=== PATIENT | male | born 1955 | race Caucasian/White ===

== ENCOUNTER 2021-06-28 17:35 | Emergency (ER) | payer OTHER ==
[~2021-06-28] VITALS: Ht 172.7 cm; Wt 113.4 kg
[~2021-06-28 17:35] MED LIST: CRUTCH2 XX; HYDACE5 PO; Naprosyn500 MG PO; PROM25 PO; TRAM50 PO; VICODIN 5-3001 EACH PO
[2021-06-28 18:05] LABS: BASOPHILS ABSOLUTE AUTO 0.01 K/mm3 (0.00-0.23); BASOPHILS PERCENT AUTO 0 % (0-2); EOSINOPHILS ABSOLUTE AUTO 0.17 K/mm3 (0.00-0.68); EOSINOPHILS PERCENT AUTO 2 % (0-6); Hematocrit 45.3 % (37.0-53.0); Hemoglobin 15.5 g/dL (13.5-17.5); IMMATURE GRAN ABSOLUTE AUTO 0.02 K/mm3 (0.00-0.10); IMMATURE GRAN PERCENT AUTO 0 % (0-1); LYMPHOCYTES ABSOLUTE AUTO 2.04 K/mm3 (0.84-5.20); LYMPHOCYTES PERCENT AUTO 29 % (21-46); MONOCYTES ABSOLUTE AUTO 0.36 K/mm3 (0.16-1.47); MONOCYTES PERCENT AUTO 5 % (4-13); Mean Corpuscular HGB 32.1 pg (26.0-34.0); Mean Corpuscular HGB Conc 34.2 g/dL (31.5-36.5); Mean Corpuscular Volume 94 fL (80-100); Mean Platelet Volume 11.4 fL (9.1-12.4); NEUTROPHILS ABSOLUTE AUTO 4.41 K/mm3 (1.96-9.15); NEUTROPHILS PERCENT AUTO 63 % (41-73); Platelet Count 167 K/mm3 (150-400); RDW Coefficient Variation 12.6 % (11.7-14.2); RDW Standard Deviation 43.7 fL (35.1-46.3); Red Blood Cell Count 4.83 M/mm3 (4.30-5.90); White Blood Cell Count 7.01 K/mm3 (4.00-11.30)
[2021-06-28 18:30] LABS: Alanine Aminotransfer (ALT/SGP 38 U/L (12-78); Albumin, Blood 3.5 g/dL (3.4-5.0); Albumin/Globulin Ratio 0.9 (0.8-1.8); Alk Phos 50 U/L (50-136); Anion Gap 4 mmol/L (6-16); Aspartate Aminotrans (AST/SGOT 17 U/L (12-37); Bilirubin, Total 0.4 mg/dL (0.1-1.0); Blood Urea Nitrogen 15 mg/dL (8-24); Bun/Creatinine Ratio 14.7 (12.0-20.0); CO2, Blood 29 mmol/L (21-32); Calcium, Blood 10.1 mg/dL (8.5-10.1); Chloride, Blood 107 mmol/L (98-108); Creatinine, Blood 1.02 mg/dL (0.60-1.20); Globulin, Blood 3.8 g/dL (2.2-4.0); Glomerular Filtration Rate >60 (60-); Glucose, Blood 234 mg/dL (70-99); Potassium, Blood 4.1 mmol/L (3.5-5.5); Sodium, Blood 140 mmol/L (136-145); Total Protein, Blood 7.3 g/dL (6.4-8.2)
[2021-06-28] MEDS ORDERED: ELIQUIS5 M2 PO (18:51)
== END 2021-06-28 19:17 | disposition home or self-care (01) ==
LOC: ER 17:35
PROVIDERS: Physician Assistant
DX: I82.401 Acute embolism and thrombosis of unspecified deep veins of right lower extremity (principal)
CPT/HCPCS: 36415; 80053; 85025; 99283; A9270

== ENCOUNTER 2023-01-25 18:01 | Inpatient (IN) | payer OTHER ==
[~2023-01-25] VITALS: Ht 182.9 cm; Wt 98.2 kg
[~2023-01-25 18:01] MED LIST changes: +ELIQUIS5 M2 PO
[2023-01-25 18:38] LABS: BASOPHILS ABSOLUTE AUTO 0.01 K/mm3 (0.00-0.23); BASOPHILS PERCENT AUTO 0 % (0-2); EOSINOPHILS PERCENT AUTO 0 % (0-6); Hematocrit 49.3 % (37.0-53.0); Hemoglobin 17.2 g/dL (13.5-17.5); IMMATURE GRAN ABSOLUTE AUTO 0.05 K/mm3 (0.00-0.10); IMMATURE GRAN PERCENT AUTO 0 % (0-1); LYMPHOCYTES ABSOLUTE AUTO 1.48 K/mm3 (0.84-5.20); LYMPHOCYTES PERCENT AUTO 11 % (21-46); MONOCYTES ABSOLUTE AUTO 1.09 K/mm3 (0.16-1.47); MONOCYTES PERCENT AUTO 8 % (4-13); Mean Corpuscular HGB 33.3 pg (26.0-34.0); Mean Corpuscular HGB Conc 34.9 g/dL (31.5-36.5); Mean Corpuscular Volume 96 fL (80-100); Mean Platelet Volume 11.3 fL (9.1-12.4); NEUTROPHILS ABSOLUTE AUTO 10.52 K/mm3 (1.96-9.15); NEUTROPHILS PERCENT AUTO 80 % (41-73); Platelet Count 180 K/mm3 (150-400); RDW Coefficient Variation 13.4 % (11.7-14.2); RDW Standard Deviation 47.8 fL (35.1-46.3); Red Blood Cell Count 5.16 M/mm3 (4.30-5.90); White Blood Cell Count 13.15 K/mm3 (4.00-11.30)
[2023-01-25 18:52] LABS: Albumin, Blood 3.6 g/dL (3.4-5.0); Albumin/Globulin Ratio 0.9 (0.8-1.8); Bilirubin, Total 0.8 mg/dL (0.1-1.0); Bun/Creatinine Ratio 13.5 (12.0-20.0); Calcium, Blood 8.9 mg/dL (8.5-10.1); Globulin, Blood 4.1 g/dL (2.2-4.0); Potassium, Blood 4.5 mmol/L (3.5-5.5); Total Protein, Blood 7.7 g/dL (6.4-8.2)
[2023-01-25 20:19] LABS: Source, Urine Straight Cath
[2023-01-25 20:23] LABS: Bilirubin, Urine Neg (Neg); Blood, Urine 4+ (Neg); Glucose Qualitative, Urine Neg (Neg); Ketones, Urine Neg (Neg); Leukocyte Esterase, Urine Neg (Neg); Nitrite, Urine Neg (Neg); Protein, Urine 1+ (Neg); Specific Gravity, Urine 1.005 (1.003-1.022); Urobilinogen, Urine NORM (Normal)
[2023-01-25 20:40] LABS: Appearance, Urine Clear (Clear); Color, Urine Yellow (P-Yellow)
[2023-01-25 20:41] LABS: Bacteria Rare /hpf; Red Blood Cells, Urine 0-2 /hpf (0-2); Squamous Epithelial Cells Not Seen /hpf (Few); White Blood Cells, Urine 0-2 /hpf (0-5)
[2023-01-25 23:44] VITALS: BP 216/125
[2023-01-26] VITALS (10 sets, daily range): BP systolic 141–212; BP diastolic 88–119
[2023-01-26] MEDS ORDERED: XARELTO20 MG PO (00:57)
--- NOTE | 2023-01-26 01:35 | NUR ---
PT HAS HAD HTN SINCE ARRIVING TO UNIT, PRN GIVEN PER ORDER FOR BP 216/125, RETAKEN WITH 212/119, CALL TO DR LO WITH NEW ORDER FOR LABATOLOL PLACED, GIVEN, BP 171/102, INFORMED DR LO AND NO FURTHER INSTRUCTIONS OR INTERVENTIONS AT THIS TIME.
[2023-01-26 04:52] LABS: BASOPHILS ABSOLUTE AUTO 0.03 K/mm3 (0.00-0.23); BASOPHILS PERCENT AUTO 0 % (0-2); EOSINOPHILS PERCENT AUTO 0 % (0-6); Hemoglobin 16.7 g/dL (13.5-17.5); IMMATURE GRAN ABSOLUTE AUTO 0.07 K/mm3 (0.00-0.10); IMMATURE GRAN PERCENT AUTO 1 % (0-1); LYMPHOCYTES ABSOLUTE AUTO 0.59 K/mm3 (0.84-5.20); LYMPHOCYTES PERCENT AUTO 4 % (21-46); MONOCYTES ABSOLUTE AUTO 1.23 K/mm3 (0.16-1.47); MONOCYTES PERCENT AUTO 8 % (4-13); Mean Corpuscular HGB 32.5 pg (26.0-34.0); Mean Corpuscular HGB Conc 34.1 g/dL (31.5-36.5); Mean Corpuscular Volume 95 fL (80-100); Mean Platelet Volume 11.4 fL (9.1-12.4); NEUTROPHILS ABSOLUTE AUTO 13.21 K/mm3 (1.96-9.15); NEUTROPHILS PERCENT AUTO 87 % (41-73); Platelet Count 149 K/mm3 (150-400); RDW Coefficient Variation 13.4 % (11.7-14.2); RDW Standard Deviation 47.9 fL (35.1-46.3); Red Blood Cell Count 5.14 M/mm3 (4.30-5.90); White Blood Cell Count 15.13 K/mm3 (4.00-11.30)
[2023-01-26 05:07] LABS: Albumin, Blood 3.1 g/dL (3.4-5.0); Albumin/Globulin Ratio 0.9 (0.8-1.8); Bilirubin, Total 1.2 mg/dL (0.1-1.0); Bun/Creatinine Ratio 19.6 (12.0-20.0); Calcium, Blood 8.4 mg/dL (8.5-10.1); Creatinine, Blood 1.38 mg/dL (0.60-1.20); Globulin, Blood 3.6 g/dL (2.2-4.0); Potassium, Blood 4.1 mmol/L (3.5-5.5); Total Protein, Blood 6.7 g/dL (6.4-8.2)
--- NOTE | 2023-01-26 06:26 | NUR ---
BP 165/106 HR 111 AT 0445, PRN HYDRALOZINE GIVEN, BP 165/98 HR 119, DR CALLED, LOPRESSOR 5MG IV ORDERED AND GIVEN. PT BREATHING IS BECOMING MORE TACHYPNIC. PT HAS ATTEMPTED TO SAY SOME WORDS.
--- NOTE | 2023-01-26 07:58 | NUR ---
MD CALL ON ASSESSMENT PT NON VERBAL, ABLE TO NOD TO SOME QUESTIONS, BUT SLOW TO RESPOND. ABLE TO VERY WEAKLY SQUEEZE MY HANDS, EQUAL, BUT SLOW RESPONSE. ABLE TO WIGGLE TOES AND PUSH TOES INTO MY HANDS, EQUAL BUT VERY WEAK. RESP RATE 28-30. FACE SOMEWHAT FLUSHED. SKIN WARM TO TOUCH. NO UOP SINCE LAST STRAIGHT CATH, BLADDER SCAN GREATER THAN 450. DR GRESHAM CALLED TO REPORT FINDINGS. TELEPHONE ORDER TO INCREASE IVF TO NS AT 150CC/HR AND PLACE [facility].
[2023-01-26 08:28] LABS: Base Excess Venous -0.2 mmol/L; Bicarbonate Venous 25.1 mmol/L (24.0-30.0); PCO2 Venous 32.4 mmHg (38-42); pH Blood Venous 7.47 (7.34-7.37)
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
[2023-01-26 15:56] LABS: U Amphetamine Screen Not Detected; U Barbituate Screen Not Detected; U Benzodiazapine Screen Not Detected; U Buprenorphine Screen Not Detected; U Cannabinoids Screen Not Detected; U Cocaine Screen Not Detected; U Methadone Screen Not Detected; U Methamphetamine Screen Not Detected; U Opiates Screen Not Detected; U Oxycodone Screen Not Detected; U Phencyclidine Screen Not Detected; U Propoxyphene Screen Not Detected
--- NOTE | 2023-01-26 15:59 | NUR ---
MD CALL DISCUSSED WITH DR GRESHAM UPDATE OF CARE STATUS; CIWA SCORE 9 - DISCORIENTION/UNABLE TO ANSWER QUESTIONS CAUSED 4 OF THE CIWA SCORE. SAID THAT MEDICATING FOR CIWA AT THIS POINT COULD BLANKET MENTAL STATUS CHANGES, WHICH I AGREE WITH. WILL CONTINUE TO REVIEW WITH FURTHER CIWAS. PT'S EYES LOOKING FREQUENTLY TO THE RIGHT. RESPIRATION RATE CONTINUES TO BE 28-32RESPS PER MINUTE. NO NEW ORDERS AT THIS TIME.
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
[2023-01-27 03:31] VITALS: BP 153/92
[2023-01-27 04:44] LABS: Hematocrit 43.9 % (37.0-53.0); Hemoglobin 14.8 g/dL (13.5-17.5); Mean Corpuscular HGB Conc 33.7 g/dL (31.5-36.5); Mean Corpuscular Volume 98 fL (80-100); Platelet Count 131 K/mm3 (150-400); RDW Coefficient Variation 14.1 % (11.7-14.2); Red Blood Cell Count 4.49 M/mm3 (4.30-5.90); White Blood Cell Count 11.26 K/mm3 (4.00-11.30)
[2023-01-27 05:27] LABS: Albumin, Blood 2.3 g/dL (3.4-5.0); Albumin/Globulin Ratio 0.6 (0.8-1.8); Bilirubin, Total 1.2 mg/dL (0.1-1.0); Bun/Creatinine Ratio 26.7 (12.0-20.0); Calcium, Blood 7.8 mg/dL (8.5-10.1); Creatinine, Blood 0.94 mg/dL (0.60-1.20); Globulin, Blood 3.9 g/dL (2.2-4.0); Potassium, Blood 3.9 mmol/L (3.5-5.5); Total Protein, Blood 6.2 g/dL (6.4-8.2)
--- NOTE | 2023-01-27 06:05 | NUR ---
PT MORE VERBAL THIS SHIFT, STILL UNSURE OF MENTATION HE DOES NOT ALWAYS ANSWER. PRN X1 FOR BP. Q2HR TURN. BED ALARM ON.
[2023-01-27 07:45] VITALS: BP 146/87
[2023-01-27 15:08] VITALS: BP 153/88
--- NOTE | 2023-01-27 16:25 | NUR ---
SHIFT SUMMARY PATIENT IS ALERT AND ORIENTED TO SELF AND FAMILY. PATIENT HAS HAD NO ACUTE EVENTS THIS SHIFT. VITAL SIGNS REVIEWED. PATIENT HAS BEEN MORE ALERT THE SHIFT WENT ON. PATIENT HAS HAD SPEECH EVAL DONE TODAY AND CAN TOLERATE FOOD AND THIN LIQUIDS. PATIENT HAS HAD NO COMPLAINTS OF PAIN, NAUSEA, SOB OR VOMITTING. BED IN LOCKED AND LOWEST POSITION. CALL LIGHT IN PLACE.
[2023-01-27 19:59] VITALS: BP 155/92
[2023-01-28] VITALS (7 sets, daily range): BP systolic 139–190; BP diastolic 82–109
[2023-01-28 05:14] LABS: BASOPHILS ABSOLUTE AUTO 0.01 K/mm3 (0.00-0.23); BASOPHILS PERCENT AUTO 0 % (0-2); EOSINOPHILS ABSOLUTE AUTO 0.01 K/mm3 (0.00-0.68); EOSINOPHILS PERCENT AUTO 0 % (0-6); Hematocrit 40.5 % (37.0-53.0); Hemoglobin 13.3 g/dL (13.5-17.5); IMMATURE GRAN ABSOLUTE AUTO 0.04 K/mm3 (0.00-0.10); IMMATURE GRAN PERCENT AUTO 0 % (0-1); LYMPHOCYTES ABSOLUTE AUTO 1.17 K/mm3 (0.84-5.20); LYMPHOCYTES PERCENT AUTO 12 % (21-46); MONOCYTES ABSOLUTE AUTO 0.78 K/mm3 (0.16-1.47); MONOCYTES PERCENT AUTO 8 % (4-13); Mean Corpuscular HGB Conc 32.8 g/dL (31.5-36.5); Mean Corpuscular Volume 101 fL (80-100); Mean Platelet Volume 11.7 fL (9.1-12.4); NEUTROPHILS ABSOLUTE AUTO 7.93 K/mm3 (1.96-9.15); NEUTROPHILS PERCENT AUTO 80 % (41-73); Platelet Count 117 K/mm3 (150-400); RDW Coefficient Variation 13.9 % (11.7-14.2); RDW Standard Deviation 51.6 fL (35.1-46.3); Red Blood Cell Count 4.03 M/mm3 (4.30-5.90); White Blood Cell Count 9.94 K/mm3 (4.00-11.30)
[2023-01-28 06:03] LABS: Albumin/Globulin Ratio 0.5 (0.8-1.8); Bilirubin, Total 0.8 mg/dL (0.1-1.0); Bun/Creatinine Ratio 25.1 (12.0-20.0); Calcium, Blood 7.9 mg/dL (8.5-10.1); Creatinine, Blood 0.88 mg/dL (0.60-1.20); Potassium, Blood 3.9 mmol/L (3.5-5.5)
--- NOTE | 2023-01-28 06:40 | NUR ---
SHIFT SUMMARY A/O TO SELF ONLY. BEDREST AT THIS TIME. INCONT, ATTENDS IN PLACE. NS RUNNING AT 150. TELE SR 70-80S. VSS, NO ACUTE CHANGES AT THIS TIME. BED IN LOWEST POSITION WITH CALL LIGHT IN REACH. WILL CONTINUE TO MONITOR AND REPORT TO ONCOMING RN.
--- NOTE | 2023-01-28 12:17 | NUR ---
INCREASED AGITATION/CIWA AGITATION INCREASING T/O SHIFT. PT NOT STAYING IN BED, PULLING OUT IVS AND TELE OFF. CIWA OF 12. DR. HUSSEIN NOTIFIED FOR CIWA PROTOCOL ORDERS. PT MEDICATED WITH ATIVAN AFTERWARDS. PT NOW SLEEPING.
--- NOTE | 2023-01-28 14:09 | NUR ---
TRANSFER TO 350 PT TRANSFERED TO ROOM 350. REPORT GIVEN TO HARSHA TALAVERA. PT , CHIN NOTIFED AND IN ROOM WITH PT NOW.
--- NOTE | 2023-01-28 17:56 | NUR ---
TRANSFER PCU 10 REPORT CALLED TO AUBREY/MASON RN'S. PT AWAKE. MUMBLES OCCASIONALLY. BP ELEVATED. HYDRALAZINE GIVEN. PT NOTIFIED OF TRANSFER TO HIGHER CARE. PT TMOVED IN HIS BED. CONTINUEPOC.
--- NOTE | 2023-01-28 18:38 | NUR ---
TRANSFER/SHIFT SUMMARY: PATIENT ARRIVAL TO PCU AT 1730ISH. OPENING EYES AND ANSWERING SIMPLE YES AND NO QUESTIONS. PERRLA. LETHARGIC/DROWSY UPON ARRIVAL. DENIES N/T. FOLLOWING SIMPLE COMMANDS, SLOW TO RESPOND. BILATERAL EQUIPMENT RECORDS SUPERVISOR STRENGTH AND EQUAL MOVEMENTS. ON ROOM AIR SATING ABOVE 95%. LUNGS SOUNDS CLEAR AND DIM. NO COUGH NOTED. RR: 24-28. OCCASIONAL EXPIRATORY WHEEZE. TELE SHOWING SR WITH HR 80-90'S. SBP TRENDING DOWN IN 160'S. DENIES CHEST PAIN/PRESSURE. NO EDEMA NOTED. THIAMINE INFUSING PER EMAR. 2ND IV PLACED. DINNER TRAY HELD DUE TO PATIENT BEING SO LETHARGIC. ORAL CARE COMPLETED. RESTING CALMLY IN BED. BED ALARM IN PLACE. PATIENT NOT TRYING TO GET OUT OF BED AT THIS TIME. UPON PALPATION OF ABDOMIN PATIENT STATES HE HAS MILD TENDERNESS IN HIS RLQ. CIWA SCORE 5 UPON ARRIVAL. PATIENT VERBALIZED HOW TO CALL BY PRESSING RED LIGHT SENIOR CARE SPECIALIST LIGHT. LISTENING TO MUSIC AND TAPPING FEET IN BED. WILL CONTINUE TO MONITOR AND REPORT OFF TO NOC SHIFT.
--- NOTE | 2023-01-28 19:00 | NUR ---
ASSUMED CARE ASSUMED CARE OF PATIENT. AWAKE AND ALERT AT THIS TIME. ORIENTED TO SELF ONLY. SLOW VERBAL RESPONSE. SPEECH IS MUMBLED. MOVES ALL EXTREMITIES AND REPOSITIONS SELF IN BED SLIGHLTY. MONITOR SHOWS NSR WITH PACs/PVCs. BED ALARM IS ON. SEE SHIFT ASSESSMENT AND CIWA ASSESSMENT FOR FULL ASSESSMENT.
[2023-01-29 00:15] VITALS: BP 158/89
[2023-01-29 01:07] LABS: HBSAG SCREEN Negative (Negative); HCV AB Non Reactive (Non Reactive); HEP A AB, IGM Negative (Negative); HEP B CORE AB, IGM Negative (Negative)
[2023-01-29 03:58] VITALS: BP 142/80
--- NOTE | 2023-01-29 05:55 | NUR ---
SHIFT SUMMARY NO ACUTE CHANGES DURING NOC. CONTINUES TO BE ORIENTED TO SELF ONLY AND CONTINUES WITH SLOW VERBAL RESPONSE AND MUMBLED SPEECH. CIWA SCORES 8-13 DURING SHIFT. MEDICATED WITH LIBRIUM 25MG PO X 1 DOSE AND ATIVAN 2MG IV X 1 DOSE. PT OCCASIONALLY ATTEMPTS TO CLIMB OUT OF BED. BED ALARM IS ON. VSS. SHORT PERIODS OF APNEA NOTED WHEN ASLEEP WITH SATS DROPPING TO LOW 80s, BUT INCREASING BACK TO MID-90S QUICKLY. INCONTINENT OF URINE- ATTENDS IN PLACE. SWALLOWS LIQUIDS WITHOUT DIFFICULTY. WILL REPORT TO ONCOMING RN WHEN AVAILABLE.
--- NOTE | 2023-01-29 06:16 | NUR ---
SHIFT SUMMARY NO ACUTE CHANGES DURING NOC. PT SLEPT INTERMITTENTLY. ORIENTED AND COOPERATIVE WITH CARE, ALTHOUGH HE IS OFTEN IRRITABLE. HEPARIN INFUSING PER PHARMACY AT 18UNITS/KG/HR (28.8MLS/HR) WITH DOSING WEIGHT OF 80KG. VSS. REMAINS ON 4LNC. CONTINUES WITH MILD DYSPNEA/SOB WITH EXERTION. RESPIRATIONS EVEN AND UNLABORED AT REST. REPOSITIONS SELF IN BED. MEDICATED WITH TYLENOL 650MG FOR C/O LEFT HIP/ABD/FLANK AND BACK PAIN. PT SLEPT AFTER MEDS GIVEN, BUT WHEN AWAKE THIS AM HE STATES THAT THE TYLENOL DID NOT HELP. DR. BOOTH NOTIFIED OF PT'S CONTINUED C/O PAIN- NEW ORDER RECEIVED TO INCREASE TYLENOL DOSE AT THIS TIME. TOLERATED DIET EARLIER, BUT HAS BEEN NPO SINCE MIDNIGHT PER ORDER. VOIDING SMALL AMOUNTS OF CRISTINA URINE. WILL REPORT TO ONCOMING RN WHEN AVAILABLE.
[2023-01-29 08:07] VITALS: BP 166/94
[2023-01-29 12:00] VITALS: BP 158/88
--- NOTE | 2023-01-29 17:05 | NUR ---
ASSUMED CARE OF PT AT 0700. NO ACUTE CHANGES T/O THE SHIFT. PT MEDICATED TWICE FOR CIWA SCORES DOCUMENTED. VSS. IN THE AM PT BECAME AGGITATED AND PULLED OFF TELE AND PULLED OUT IVs. IV TO LAC PLACED AND CONCEALED. PT LATER CHANGED TO MEDICAL STATUS W/O TELE. PT'S AT BEDSIDE THIS AFTERNOON. STATES PT'S MENTATION HAS IMPROVED SINCE ADMISSION, BUT HE IS NOT BACK TO BASELINE. PHYSICAL THERAPY WORKED WITH PT, UP TO BSC WITH 1 PERSON ASSIST, BUT NOT FOLLOWING COMMANDS WELL. 2 PERSON TRANSFER FOR SAFETY. PT IS UNABLE TO USE CALL LIGHT FOR NEEDS, INCONTENENT OF URINE, ATTENDS IN PLACE. BED ALARM ON FOR SAFETY. WILL CONTINUE TO MONITOR AND GIVE REPORT TO 3RD FLOOR RN, PT WILL BE TRANSFERRED TO 343.
--- NOTE | 2023-01-29 18:22 | NUR ---
1744 to room via bed, pt slow to answer questions. oriented to person and knows that he is in hospital pt denies any pain . bed alarm in place
[2023-01-29 20:23] VITALS: BP 177/106
[2023-01-30 01:59] VITALS: BP 176/94
--- NOTE | 2023-01-30 05:02 | NUR ---
SHIFT SUMMARY 67 YR M ADMITTED FOR HEPATIC ENCEPHALOPATHY. FULL CODE. PT HAS REMAINED CONFUSED THIS SHIFT. HE DOES NOT RESPOND TO QUESTIONS AND IS UNABLE TO USE CALL LIGHT. HE TRIED TO GET UP ONCE WAS REDIRECTABLE. HE PULLED OUT HIS IV AND A NEW ONE WAS PLACED IN THE LEFT FOREARM, AND WRAPPED WELL WITH COBAN. HE HAS SLEPT OFF AND ON THROUGHOUT THIS SHIFT.
[2023-01-30 08:35] VITALS: BP 163/100
[2023-01-30 09:46] LABS: Albumin, Blood 2.1 g/dL (3.4-5.0); Albumin/Globulin Ratio 0.5 (0.8-1.8); Bilirubin, Total 1.2 mg/dL (0.1-1.0); Bun/Creatinine Ratio 26.8 (12.0-20.0); Calcium, Blood 8.5 mg/dL (8.5-10.1); Creatinine, Blood 0.71 mg/dL (0.60-1.20); Globulin, Blood 4.5 g/dL (2.2-4.0); Potassium, Blood 3.7 mmol/L (3.5-5.5); Total Protein, Blood 6.6 g/dL (6.4-8.2)
[2023-01-30 14:05] VITALS: BP 179/85
[2023-01-30 16:05] VITALS: BP 169/95
--- NOTE | 2023-01-30 18:01 | NUR ---
SHIFT SUMMARY: A&O TO SELF ONLY, RECOGNIZED . UNCCOPERATIVE WITH CARE, UNABLE/UNWILLING TO FOLLOW DIRECTIONS. ATE BREAKFAST, NO LUNCH. INCONTINENT OF B&B, ATTENDS IN PLACE. HYPERTENSIVE THIS AFTERNOON; HYDRALAZINE GIVEN AND WAS STARTED ON COZAAR. ATIVAN IV GIVEN X 1 FOR AGITATION, AND TO PREVENT SEIZURE. THIS AFTERNOON PT BECAME AGITATED, TRYING TO GET OOB WITHOUT ASSISTANCE, AND WOULD NOT FOLLOW STAFF INSTRUCTIONS. TRANSFERRED PT TO ROOM 346 IN SPECIAL CARE UNIT AT 1727 FOR CLOSER OBSERVATION AND INCREASED PT SAFETY. FTF REPORT GIVEN TO Yvonne GUTIERREZ RN.
[2023-01-30 21:51] VITALS: BP 162/99
[2023-01-31] VITALS (17 sets, daily range): BP systolic 101–166; BP diastolic 65–104
[2023-01-31 06:03] LABS: BASOPHILS ABSOLUTE AUTO 0.03 K/mm3 (0.00-0.23); BASOPHILS PERCENT AUTO 0 % (0-2); EOSINOPHILS ABSOLUTE AUTO 0.13 K/mm3 (0.00-0.68); EOSINOPHILS PERCENT AUTO 1 % (0-6); Hematocrit 40.2 % (37.0-53.0); Hemoglobin 13.8 g/dL (13.5-17.5); IMMATURE GRAN ABSOLUTE AUTO 0.16 K/mm3 (0.00-0.10); IMMATURE GRAN PERCENT AUTO 2 % (0-1); LYMPHOCYTES ABSOLUTE AUTO 1.24 K/mm3 (0.84-5.20); LYMPHOCYTES PERCENT AUTO 12 % (21-46); MONOCYTES ABSOLUTE AUTO 0.96 K/mm3 (0.16-1.47); MONOCYTES PERCENT AUTO 9 % (4-13); Mean Corpuscular HGB 32.9 pg (26.0-34.0); Mean Corpuscular HGB Conc 34.3 g/dL (31.5-36.5); Mean Corpuscular Volume 96 fL (80-100); Mean Platelet Volume 10.8 fL (9.1-12.4); NEUTROPHILS ABSOLUTE AUTO 8.24 K/mm3 (1.96-9.15); NEUTROPHILS PERCENT AUTO 77 % (41-73); Platelet Count 165 K/mm3 (150-400); RDW Coefficient Variation 13.2 % (11.7-14.2); RDW Standard Deviation 46.7 fL (35.1-46.3); Red Blood Cell Count 4.19 M/mm3 (4.30-5.90); White Blood Cell Count 10.76 K/mm3 (4.00-11.30)
[2023-01-31 06:31] LABS: Albumin, Blood 2.2 g/dL (3.4-5.0); Albumin/Globulin Ratio 0.5 (0.8-1.8); Bilirubin, Total 1.1 mg/dL (0.1-1.0); Bun/Creatinine Ratio 19.9 (12.0-20.0); Calcium, Blood 8.5 mg/dL (8.5-10.1); Creatinine, Blood 0.8 mg/dL (0.60-1.20); Globulin, Blood 4.1 g/dL (2.2-4.0); Potassium, Blood 3.5 mmol/L (3.5-5.5); Total Protein, Blood 6.3 g/dL (6.4-8.2)
--- NOTE | 2023-01-31 12:50 | NUR ---
PATIENT HAD AT BEDSIDE TODAY AT 1000 THIS MORNING WHICH PATIENT AT THAT TIME WAS ANSWERING QUESTIONS MORE APPROPRIATELY AND WAS MORE AWAKE AT THIS TIME. AFTER LEFT TO GO HOME, THE PATIENT FELL ASLEEP IN BED WITH CALL LIGHT IN REACH WELL BED ALARM ON. PATIENT WOKE UP FROM HIS NAP AROUND 1230 TRYING TO PUT HIS LEGS OVER THE SIDERAILS WHICH SET OFF THE BED ALARM. THIS NURSE AND THE TECHNOLOGY DEVELOPMENT INTERN CAME INTO THE ROOM TO ASK THE PATIENT WHERE HE WAS GOING. THE PATIENT STATED "I WANT TO SIT UP IN CHAIR". TECHNOLOGY DEVELOPMENT INTERN BROUGHT IN A RECLINER CHAIR WELL THE CHAIR ALARM. THIS NURSE POSITIONED THE PATIENT SO THAT HE WAS SITTING UP AT THE SIDE OF THE BED WITH BOTH FEET ON THE FLOOR AND PUTTING THE GAIT BELT ON HIM. WHEN THE PATIENT MOVED FROM THE BED TO RECLINER WITH A GAIT BELT ON WAS A MAX 2 PERSON ASSIST SINCE THE PATIENT HAD AN UNSTEADY GAIT WITH IMPULSIVE/QUICK MOVEMENTS. ONCE THE PATIENT WAS SITTING IN THE RECLINER WITH HIS LUNCH TRAY ON THE BEDSIDE TABLE IN FRONT OF HIM. THE PATIENT PUSHED THE BEDSIDE TABLE AWAY FROM HIM, AND WAS POINTING TO THE BED SAYING "I WANT BACK IN BED" WITH HIS FOOT TAPPING ON THE FLOOR. THE TECHNOLOGY DEVELOPMENT INTERN REMINDED THE PATIENT THAT SHE HAD TO CHANGE HIS LINENS FIRST BEFORE HE WENT BACK TO BED. AFTER THE LINENS WERE CHANGED THIS NURSE AND THE TECHNOLOGY DEVELOPMENT INTERN WERE ABLE TO GET HIM BACK TO BED, AND POSITIONED COMFORTABLY WITH BED ALARM ON AND CALL LIGHT IN REACH. ONCE THE PATIENT WAS BACK IN BED, THIS NURSE THEN HAD CAMERAS TURNED ON DUE TO SAFETY RISKS WELL GAVE THE PATIENT HIS PRN IV ATIVAN AND PO LYBRIUM PER INCREASING CIWA SCORE. AFTER THIS NURSE GAVE THE ATIVAN AND LYBRIUM TO THE PATIENT. THIS NURSE DECIDED TO ALSO CALLED DR. COTTON TO GIVE HER THE UPDATE ON HOW THE PATIENT WAS MORE AGITATED AND RESTLESS THAN BEFORE. DR. COTTON THEN PUT IN A ONE TIME ADDITIONAL LYBRIUM FOR THE PATIENT. AFTER GIVING THAT ADDED LYBRIUM TO THE PATIENT HE WAS ABLE TO SLEEP FOR A COUPLE OF HOURS. HOWEVER, AFTER HIS NAP HE BECAME INCREASINGLY MORE RESTLESS IN TRYING TO GET OUT OF BED AND WAS NOT MAKING SENSE WHEN HE TRIED TO TALK TO STAFF. THE TECHNOLOGY DEVELOPMENT INTERN AND OTHER NURSE ON THE FLOOR STAYED IN THE ROOM WITH THE PATIENT TRYING TO REDIRECT HIM WHILE THIS NURSE WENT TO GET THE ATIVAN AND LYBRIUM AGAIN FOR THE PATIENT. BY THE TIME THIS NURSE CAME BACK THE PATIENT HAD PULLED HIS ONLY IV OUT AND THE OTHER FLOOR NURSE AND TECHNOLOGY DEVELOPMENT INTERN WERE TRYING TO HAVE HIM DROP THE IV SO HE WOULDN'T HURT HIMSELF WITH IT. THE PATIENT ALSO CONTINUED TO TRY AND TAKE OFF HIS DEPENDS WELL URINATING ON HIMSELF. THIS NURSE THEN CALLED DR. COTTON TO GIVE HER THE UPDATE IN THAT THE PATIENT WAS INCREASINGLY BECOMING MORE AGITATED AND RESTLESS THAN LAST TIME WITH NO IV ACCESS NOW AND HAD A CIWA SCORE OF [address] COTTON THEN ORDERED FOR HIM TO BE TRANSFERRED TO ICU. THIS NURSE GAVE REPORT TO ICU NURSE ESTEFANY WHO AFTER GIVING REPORT HAD NO FURTHER QUESTIONS. THIS NURSE AND THE OTHER FLOOR NURSE PACKED HIS PERSONAL ITEMS IN THE ROOM AND TRANSPORTED THE PATIENT IN HIS BED TO ICU. ONCE THIS NURSE RETURNED BACK TO THE FLOOR THIS NURSE CALLED THE SON AND TO NOTIFY THEM THAT HE WAS MOVED TO THE ICU AND WHICH ROOM. BOTH THE SON AND VERBALIZED UNDERSTANDING AND WERE APPRECIATIVE OF THE UPDATE.
--- NOTE | 2023-01-31 18:12 | NUR ---
TRANSFER TO ICU REPORT FROM ESTEFANY MCLEOD. PT ARRIVES TO ICU AT 1715 FOR INCREASED CIWA. PT LAYING IN BED. RESPONSES TO VERBAL STIMULI. ORIENTED TO SELF ONLY. FOLLOWS SIMPLE COMMANDS. TRACKS STAFF. NO S/S OF HALLUCINATIONS OR TACTILE DISTURBANCES. CIWA 7. LUNGS CLEAR. SR, RATE 70'S ON MONITOR. BP STABLE. ABD ROUND, SOFT, NON TENDER. BT X 4. INCONTINENT OF URINE, ATTENDS IN PLACE. REDNESS NOTED TO COCCXY. POWERGLIDE AND PIV PLACED ON ARRIVAL. WILL CONTINUE TO MONITOR UNTIL REPORT TO ONCOMING NURSE.
--- NOTE | 2023-01-31 20:00 | NUR ---
ASSUMED CARE OF PT AT 1900. REPORT RECEIVED AT BEDSIDE. PT PRESENTS IN BED SLEEPING. NO APPARENT DISTRESS. WITH ASSESSMENT, PT DOES AWAKEN. AND IS CONFUSED. BEGINS TO PULL AT HIS IV LINES. NEEDS REMINDING TO NOT DO THIS FOR HIS OWN SAFETY. PT IS MEDICATED WITH 2 MG ATIVAN WITH SOME RELIEF. PT BELIEVES HE IS IN [place], AND THAT THE YEAR IS 1988. PT CAN NOT RECALL PRESIDENT. PT INCONTINENT TO URINE. CLEANED AND NEW ATTENDS PLACED. OFFER OF MEAL THAT PT DID NOT EAT. HE ACCEPTS AND EATS APPROX 25 PERCENT. IS ABLE TO ASSIST IN ORAL CARE AND PM CARE. WILL REVIEW CHART AND PLAN OF CARE FOR THIS PT.
--- NOTE | 2023-01-31 21:13 | NUR ---
PT HAS BEEN MEDICATED WITH 50 MG LIBRIUM. TEACHING DONE ON MEDICATION RELATED TO ALCOHOL WITHDRAWALS. WILL CONTINUE TO REINFORCE EDUCATION NEEDED. PT HAS HAD EPISODE OF TRYING TO GET OUT OF BED, AND HAS TRIED TO PUT HIS TISSUE BOX ON HIS FOOT A SHOE. REORIENTED PT. BED ALARM IN USE ON BED FOR PT SAFETY. WILL CONTINUE TO MONITOR.
--- NOTE | 2023-01-31 21:31 | NUR ---
PT'S , CHIN, PHONES TO CHECK ON HER . UPDATE GIVEN. WAS ABLE TO VERIFY VERBAL CONSENT AND BLOOD CONSENT FOR THIS PT. PT CURRENTLY RESTING IN BED. NOT PULLING AT LINES AT THIS TIME. 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 CHIN STATED THAT THIS WAS NOT FACTUAL.
[2023-02-01] VITALS (27 sets, daily range): BP systolic 106–149; BP diastolic 63–98
[2023-02-01 04:29] LABS: BASOPHILS ABSOLUTE AUTO 0.03 K/mm3 (0.00-0.23); BASOPHILS PERCENT AUTO 0 % (0-2); EOSINOPHILS ABSOLUTE AUTO 0.29 K/mm3 (0.00-0.68); EOSINOPHILS PERCENT AUTO 3 % (0-6); Hematocrit 38.8 % (37.0-53.0); Hemoglobin 13.3 g/dL (13.5-17.5); IMMATURE GRAN ABSOLUTE AUTO 0.14 K/mm3 (0.00-0.10); IMMATURE GRAN PERCENT AUTO 2 % (0-1); LYMPHOCYTES PERCENT AUTO 16 % (21-46); MONOCYTES ABSOLUTE AUTO 0.93 K/mm3 (0.16-1.47); MONOCYTES PERCENT AUTO 11 % (4-13); Mean Corpuscular HGB 33.3 pg (26.0-34.0); Mean Corpuscular HGB Conc 34.3 g/dL (31.5-36.5); Mean Corpuscular Volume 97 fL (80-100); Mean Platelet Volume 10.3 fL (9.1-12.4); NEUTROPHILS ABSOLUTE AUTO 6.03 K/mm3 (1.96-9.15); NEUTROPHILS PERCENT AUTO 68 % (41-73); Platelet Count 190 K/mm3 (150-400); RDW Coefficient Variation 13.2 % (11.7-14.2); RDW Standard Deviation 47.3 fL (35.1-46.3); White Blood Cell Count 8.82 K/mm3 (4.00-11.30)
[2023-02-01 04:50] LABS: Albumin/Globulin Ratio 0.5 (0.8-1.8); Bilirubin, Total 0.6 mg/dL (0.1-1.0); Bun/Creatinine Ratio 24.6 (12.0-20.0); Calcium, Blood 8.7 mg/dL (8.5-10.1); Creatinine, Blood 0.81 mg/dL (0.60-1.20); Globulin, Blood 3.8 g/dL (2.2-4.0); Potassium, Blood 3.9 mmol/L (3.5-5.5); Total Protein, Blood 5.8 g/dL (6.4-8.2)
--- NOTE | 2023-02-01 06:50 | NUR ---
PT HAS BEEN MEDICATED TWICE WITH 50 MG LIBRIUM WHICH HAS IMPROVED S/S ETOH WITHDRAWALS WITH EACH DOSE. PT HAS ALSO BEEN MEDICATED SEVERAL TIMES WITH ATIVAN 2 MG. PT DOES TEND TO PULL AT LINES AND GOWN AT TIMES. DOES REDIRECT WHEN PROMPTED. CONDOM CATHETER HAD COME OFF ONCE AND WAS REPLACED. CLEARED 350 ML YELLOW URINE FROM BEDSIDE BAG. PT CURRENTLY SLEEPING. WILL CONTINUE TO MONITOR PT, AND WILL REPORT OFF TO ONCOMING RN.
--- NOTE | 2023-02-01 08:37 | NUR ---
Assumed care of pt at 0700. Report received from Espinoza MCLEOD. Pt awakens to gentle verbal stimulus. Does not provide name or date of when asked. Speech is incomprehensible, garbled. Follows directions. Pt hyperfixated on IV in left hand and insistent on pulling on it. Pt otherwise calm. Medicated with librium. Currently sitting up in bed, eating breakfast. Remote monitoring on for patient safety. SpO2 97% room air.
--- NOTE | 2023-02-01 16:39 | NUR ---
SUMMARY Pt changed to PCU status per Dr Molina. Transferred to PCU 10 at 1625 via bed, accompanied by PCT Katy. Dr Molina discussed MRI results with pt's spouse. Dr Siu of neurology came by to see patient. Provider recommended restarting pt's home dose of xarelto. This was discussed relayed to Dr Molina. Pt's echo that was done today did not include a bubble study, so a partial has been reordered to include bubble study. Assessment at time of transfer is as follows: Neuro: Alert. Follows commands. Answers questions intermittently. Pt has never told this RN his name or date of when asked, but was able to participate in filling out his menu. Musc: Deconditioned. Total care for repositions. Able to feed self. Resp: SpO2 90% or greater RA. Cardiac: SR per monitor. BP stable. Trace edema BLE. GI: Excellent appetite. No BM : Pt removed comdom cath. Managing incontinence with attends and wraps Skin: Unchanged from inital assessment. Family: Pt's spouse in to see pt for approx [address] Molina and Dr Siu
--- NOTE | 2023-02-01 18:07 | NUR ---
TRANSFER TO PCU AT 1625. THIS RN AND STUDENT RN ASSUMED CARE. USED SLIDE SHEET TO TRANSFER. PATIENT OPENS EYES TO VOICE. PERRLA WITH SLUGGISH PUPIL RESPONSE. NO FACIAL DROOP NOTED. WEAKNESS NOTED THROUGHOUT FOLLOWING COMMANDS. EQUAL BILATERAL MANAGER SHAREPOINT STRENGTH. SHAKES HEAD YES AND NO. ANSWERING QUESTIONS WITH 2-3 WORD SENTENCES, ALTHOUGH VERY DIFFICULT TO UNDERSTAND. PATIENT SOMEWHAT RESTLESS UPON TRANSFER, BUT NOW SLEEPING. UPON INTIAL ASSESSMENT CIWA SCORING 10 MOSTLY DUE TO PATIENT BEING RESTLESS. ON ROOM AIR, LUNG SOUNDS CLEAR/DIM IN BASES. NO COUGH NOTED. SWALLOWING FLUIDS AND PILLS WITH NO SAFETY ISSUES. TELE SHOWING SR WITH HR 70'S. DENIES CHEST PAIN/PRESSURE. BP STABLE. MINIMAL EDEMA TO BLE. DENIES ABDOMINAL PAIN/NAUSEA. BOWEL TONES PRESENT. INCONTINENT WITH ATTENDS AND WRAP IN PLACE. SUCTION SET UP AT BEDSIDE. ORAL CARE AND FACEWASH COMPLETED. THIAMINE AND INFUSED PER EMAR VIA POWERGLIDE. CALL LIGHT IN REACH. BED ALARM IN PLACE.
[2023-02-02 03:36] VITALS: BP 148/85
[2023-02-02 03:48] LABS: BASOPHILS ABSOLUTE AUTO 0.03 K/mm3 (0.00-0.23); BASOPHILS PERCENT AUTO 0 % (0-2); EOSINOPHILS ABSOLUTE AUTO 0.23 K/mm3 (0.00-0.68); EOSINOPHILS PERCENT AUTO 2 % (0-6); Hematocrit 38.8 % (37.0-53.0); Hemoglobin 13.1 g/dL (13.5-17.5); IMMATURE GRAN ABSOLUTE AUTO 0.09 K/mm3 (0.00-0.10); IMMATURE GRAN PERCENT AUTO 1 % (0-1); LYMPHOCYTES ABSOLUTE AUTO 1.53 K/mm3 (0.84-5.20); LYMPHOCYTES PERCENT AUTO 15 % (21-46); MONOCYTES ABSOLUTE AUTO 0.92 K/mm3 (0.16-1.47); MONOCYTES PERCENT AUTO 9 % (4-13); Mean Corpuscular HGB 33.1 pg (26.0-34.0); Mean Corpuscular HGB Conc 33.8 g/dL (31.5-36.5); Mean Corpuscular Volume 98 fL (80-100); Mean Platelet Volume 10.6 fL (9.1-12.4); NEUTROPHILS ABSOLUTE AUTO 7.47 K/mm3 (1.96-9.15); NEUTROPHILS PERCENT AUTO 73 % (41-73); Platelet Count 216 K/mm3 (150-400); RDW Coefficient Variation 12.7 % (11.7-14.2); RDW Standard Deviation 46.3 fL (35.1-46.3); Red Blood Cell Count 3.96 M/mm3 (4.30-5.90); White Blood Cell Count 10.27 K/mm3 (4.00-11.30)
[2023-02-02 04:13] LABS: Albumin, Blood 2.1 g/dL (3.4-5.0); Anion Gap Unable to Calculate mmol/L (6-16); Blood Urea Nitrogen 17 mg/dL (8-24); Bun/Creatinine Ratio 20.1 (12.0-20.0); CHOL/HDL RATIO 4.7; CO2, Blood 32 mmol/L (21-32); Calcium, Blood 8.3 mg/dL (8.5-10.1); Chloride, Blood 108 mmol/L (98-108); Cholesterol 147 mg/dL (50-200); Creatinine, Blood 0.85 mg/dL (0.60-1.20); Glomerular Filtration Rate 95 (60-); Glucose, Blood 135 mg/dL (70-99); HDL Cholesterol 31 mg/dL (>39); LDL/HDL RATIO 2.9; Low Density Lipoprotein Chol 90 mg/dL (0-110); Phosphorus, Blood 2.8 mg/dL (2.5-4.9); Potassium, Blood 3.5 mmol/L (3.5-5.5); Sodium, Blood 139 mmol/L (136-145); Triglycerides 128 mg/dL (30-160); Very Low Density Lipoprot Chol 25 mg/dL (6-32)
--- NOTE | 2023-02-02 05:53 | NUR ---
AUDIO VISUAL ARTS DIRECTOR SUMMARY ASSUMED CARE OF THE PT AT 1900. HE IS ALERT BUT ORIENTATION WITH LIMITED ASSESSMENT DUE TO DIFFICULTY COMMUNICATING. HE IS ABLE TO NOD YES AND SHAKE HIS HEAD NO. PT COOPERATIVE AND FOLLOWING COMMANDS AT THE START OF THE SHIFT BUT HAS BECOME INCREASINGLY AGITATED THIS AM. PT GIVEN TWO DOSES OF PRN ATIVAN FOR AGITATION. HE IS INCONTINENT. NO BM. PT HAS BEEN SINUS ON TELE AND SATTING >92%. NO SIGNIFICANT WEAKNESS NOTED THIS SHIFT. BP STABLE.
--- NOTE | 2023-02-02 08:04 | NUR ---
MORNING PO MEDS ARE HELD PT WILL NOT STAY AWAKE FOR MORE THAN A FEW SECONDS TO SAFELY ADMINSTER PO MEDICATIONS. PT WAKES TO VERBAL STIMULI OPENS EYES TO HALF AND APPEARS TO NEARLY IMMEDIATELY RETURN TO SLEEP. LUNG SOUNDS ARE CLEAR IN UPPER LOBES AND DIM IN THE BASES. WILL ATTEMPT TO ADMINISTER ORAL MEDICATIONS LATER IF PT BECOMES MORE AWAKE
[2023-02-02 08:07] VITALS: BP 131/89
--- NOTE | 2023-02-02 08:35 | NUR ---
PT AWAKE ABLE TO ANSWER YES NO QUESTIONS, ABLE TO TOLERATE PO MEDICATIONS AT THIS TIME
--- NOTE | 2023-02-02 16:46 | NUR ---
PT WAS MADE MEDICAL STATUS WITH TELEMETRY TODAY. PT ALERT, ORIENTED TO SELF. PT IS CALM, HE CURSES AT STAFF WHEN MOVED OR ROLLED BUT IS COOPERATIVE. PT'S IN TO VISIT, ENTERED ROOM AND BEGAN SCREAMING AT PT WHICH GOT PT VERY AGITATED, THEN ASKED THIS NURSE "CAN YOU GIVE HIM SOME PAIN MEDICINE TO JUST KNOCK HIM BACK OUT?" IS EDUCATED THAT PT HAS BEEN CALM FOR THE DAY AND DID NOT EXHIBIT ANY AGITATION AND THAT PAIN MEDICATION WILL NOT BE ADMINISTERED TO A MEANS TO CALM PT DURING HER VISIT WHEN PT IS NOT EXHIBITING PAIN, PT IS SHOUTING AT "GO HOME" WHICH HE STATES TO HER 3 TIMES. PT OTHERWISE IS REDIRECTABLE WITH STAFF. HE USES 2-3 WORD SENTENCES. HE CONTINUES TO BE ORIENTED TO SELF, HE SEEMED TO RECOGNIZE BUT COULD NOT CALL HER BY NAME. VSS. HE TAKES ORAL MEDS WELL WITHOUT ISSUES. SKIN IS PALE, DRY. PT TURNED Q2 HOURS WITH AIDES.
[2023-02-02 18:06] VITALS: BP 171/107
[2023-02-02 18:47] VITALS: BP 165/97
[2023-02-02 20:01] VITALS: BP 164/92
[2023-02-03 04:10] VITALS: BP 143/78
--- NOTE | 2023-02-03 06:12 | NUR ---
SHIFT SUMMARY: NO ACUTE CHANGES NOTED DURING THIS SHIFT. PT ORIENTED TO SELF ONLY. ABLE TO NODE OF SHAKE HEAD AT QUESTIONS AT TIMES TIMES, MAJORITY OF TIME PT IS NON VERBAL. AGGISTED INTERMITTENTLY THROUGHOUT NIGHT, PULLING OFF TELE, UNABLE TO BE CONSULED. MEDICATED WITH MODERATE RESULTS. TELEMETRY DISCONTINUED DUE TO PT CONSTATNLY REMOVING TELE. HR HAS REMAINED IN SR PRIOR TO DC OF TELE. DOES NOT APPEAR IN ANY DISTRESS. BED ALARM ON.
[2023-02-03 07:31] VITALS: BP 147/84
[2023-02-03 16:00] VITALS: BP 152/90; BP 152/960
--- NOTE | 2023-02-03 17:41 | NUR ---
SHIFT SUMMARY: PT SLEEPS OFTEN, AROUSES EASILY TO STAFF IN ROOM, ANSWERS QUESTIONS MOSTLY WITH YES/NO OR NODDING/SHAKING HEAD, SOME WORDS ARE MUMBLED AND DIFFICULT TO UNDERSTAND. PT HAS BEEN COOPERATIVE W/CARE THIS SHIFT, MINIMALLY HELPING WITH REPOSITIONING AND TURNING. PT HAS REMAINED IN BED THIS SHIFT, REPOSITIONED PER PROTOCOL. O2 SATS >93% ON RA, VS STABLE. PT DENIES PAIN, SOB, DISCOMFORT WHEN ASKED W/DIRECT QUESTIONS. PT INCONTINENT OF URINE, ATTENDS IN PLACE AND CHANGED NEEDED. PT WITH MINIMAL APPETITE, WAS ABLE TO EAT INDEPENDENTLY AT BREAKFAST BUT DOES BENEFIT FROM TRAY SET UP AND PROMPTING/ASSISTANCE W/EATING. PT HAS RECEIVED NEW ROOM ASSIGNMENT IN MEDICAL DEPT, CURRENTLY AWAITING NURSE FOR REPORT. WILL CONTINUE TO MONITOR AND TREAT ACCORDINGLY UNTIL TRANSFER.
[2023-02-03 18:34] VITALS: BP 134/94
--- NOTE | 2023-02-03 18:38 | NUR ---
TRANSFER NOTE: PT TRANSFERRED FROM U 10. REPORT RECEIVED FROM HARSHA MALLOY.
[2023-02-03 20:30] VITALS: BP 135/92
[2023-02-04 01:53] VITALS: BP 143/93
--- NOTE | 2023-02-04 07:04 | NUR ---
SHIFT SUMMARY: PT A&OX1. NON-VERBAL THE MAJORITY OF THE TIME WITH OCCAIONAL MOMENTS WHEN HE WILL NOD OR SHAKE HIS HEAD TO ANSWER QUESTIONS, ALSO OCCAIONALLY ANSWERS QUESTIONS. SPEAK IS GARBLED AND VERY DIFFICULT TO UNDERSTAND. SLEPT MAJORITY OF THE NIGHT. OCCAIONAL RESTLESS MOMENETS, ABLE TO REDIRECT AND REPOSITION FOR COMFORT. VITAL SIGNS STABLE.
[2023-02-04 07:09] VITALS: BP 133/82
[2023-02-04 14:28] VITALS: BP 144/85
--- NOTE | 2023-02-04 18:02 | NUR ---
PT ALERT TO SELF. CONFUSED BUT DIRECTABLE. PT ABLE TO TALK IN FULL, NONSENSICAL SENTENCES. PT PULLED POWER GLIDE IN THE EARLY AFTERNOON. DR SOUTH NOTIFIED AND NURSE NOTIFY ORDER GIVEN TO ATTEMPT IV PLACMENT WHEN PT IS MORE CALM. PT WAS FOUND OOB WITH BED ALARM SOUNDING. PT WAS ASSISTED BACK TO BED WITH GAIT BELT AND 2 PERSON ASSIST. PHYSICAL THERAPY WORKED WITH PT AND RECOMENDS PT TO DANGLE AND UP IN CHAIR. PT MOVED TO SCU AND REPORT GIVEN TO NURSE.
--- NOTE | 2023-02-04 18:16 | NUR ---
PT TRANSFERRED TO ROOM 349 VIA BED FROM 327. SETTLED IN ROOM AND CALL BUTTON WITHIN REACH.
[2023-02-04 20:32] VITALS: BP 109/62
[2023-02-05 03:47] VITALS: BP 114/95
--- NOTE | 2023-02-05 03:52 | NUR ---
SHIFT UNREMARKABLE. PT HAS SLEPT THROUGH MOST OF SHIFT. AWOKE EARLY THIS MORNING AND HAS BEEN WATCHING TV QUIETLY SINCE. HAS DENIED ANY PAIN/DISCOMFORT THROUGHOUT SHIFT. COOPERATIVE WITH CARE ALTHOUGH MILDLY IRRITABLE. SPEAKS ONLY IN SCATTERED WORDS, SEEMINGLY ONLY ORIENTED TO SELF. SEEMS TO UNDERSTAND ME JUST FINE DUE TO COOPERATIION WITH VERBAL DIRECTION BUT IS NOT ABLE TO ANSWER QUESTIONS IN MORE THAN 1-2 WORDS AT A TIME. BED LOCKED IN LOWEST POSITION. BED ALARM ON. CALL LIGHT LEFT WITHIN REACH.
[2023-02-05 07:28] VITALS: BP 120/95
[2023-02-05 15:32] VITALS: BP 113/97
--- NOTE | 2023-02-05 17:47 | NUR ---
PT IS A/OX2, PT WAS ABLE TO STATE THAT HE WAS IN THE HOSPITAL, STATED HIS BIRTHDATE AND NAME. PT WAS UP TO THE BATHROOM WITH MINIMAL ASSIST. PT HAD A BM WITH A SMALL AMOIUNT OF HUNTER BLOOD MOST LIKLEY FROM HEMROIDS. PT WAS GIVEN TYLENOL FOR PAIN X1 SO FAR THIS SHIFT. PT WAS COOPERATIVE T/O THE DAY EASILY REDIRECTABLE. CALL LIGHT IN REACH. BED IN LOW POSITION, BED ALARM ON FOR PT SAFETY. WILL CONTINUE TO MONITOR AND ASSESS FOR CHANGES
[2023-02-06 02:11] VITALS: BP 139/88
--- NOTE | 2023-02-06 03:19 | NUR ---
PT HAS BEEN MUCH MORE ACTIVE THIS SHIFT THAN LAST NIGHT OR NIGHT PRIOR TO THAT. DIFFICULT TO ASSESS ORIENTATION DUE TO VERY LIMITED WORDS HE SPEAKS. SEEMS TO UNDERSTAND DIRECTIONS/QUESTIONS BUT DOES NOT FOLLOW DIRECTION MOST OF TIME AND DOES NOT RESPOND APPROPRIATELY TO ANY QUESTIONS THAT HAVE MORE COMPLEX ANSWERS THAN "YES/NO". PT HAS BEEN IMPULSIVELY ATTEMPTING OOB SEVERAL TIMES THIS SHIFT, MOSTLY REDIRECTABLE BUT BECOMES VERY IRRITATED. TRANSFERRED TO BATHROOM ONE TIME, HEAVY 2 PERSON ASSIST. PT WAS NOT ABLE TO ADEQUATELY FOLLOW DIRECTION TO ASSIST WITH TRANSFER AND WAS VERY UNSTEADY ON FEET. HAD TO TAKE BREAK TO SIT IN CHAIR BETWEEN BED/BATHROOM. SHIFT HAS OTHERWISE NOT BEEN NOTEWORTHY. BED LOCKED IN LOWEST POSITION. CALL LIGHT LEFT WITHIN REACH ALTHOUGH PT DOES NOT USE THE CALL LIGHT.
[2023-02-06 07:31] VITALS: BP 133/81
[2023-02-06 15:49] VITALS: BP 138/72
--- NOTE | 2023-02-06 16:43 | NUR ---
SHIFT SUMMARY PATIENT IS ALERT BUT NOT ORIENTED. PATIENT HAS BEEN RESTING MOST OF SHIFT. PATIENT HAS BEEN IMPULSIVE AND HAS NOT HAD A GOOD APPETITE. PATIENTS CAME TO VISIT FOR AWHILE TODAY. PATIENT HAS NOT BEEN REDIRECTABLE THIS SHIFT. PATIENT HAS ONLY BEEN ABLE TO ANSWER SIMPLE YES/NO QUESTIONS THIS SHIFT. PATIENT DOES NOT USE THE CALL LIGHT AND IMPUSIVELY GETS UP. BED AND CHAIR ALARM HAVE BEEN USED FOR SAFETY. BED IN LOCKED AND LOWEST POSITION. CALL LIGHT IN PLACE. WILL MONITOR UNTIL SHIFT CHANGE.
[2023-02-06 19:23] VITALS: BP 124/75
[2023-02-07 05:05] VITALS: BP 104/66
--- NOTE | 2023-02-07 05:29 | NUR ---
Shift Summary Pt alert but not oriented, understands fewquestions and commands. He is incontinent and changed PRN. He can be very irritable during patient care but is generally cooperative. No attempts to get out of bed. Slepts t/o most of the night, VSS.
[2023-02-07 07:23] VITALS: BP 116/66
[2023-02-07 09:21] LABS: Albumin, Blood 2.2 g/dL (3.4-5.0); Albumin/Globulin Ratio 0.5 (0.8-1.8); Bilirubin, Total 0.7 mg/dL (0.1-1.0); Bun/Creatinine Ratio 25.7 (12.0-20.0); Calcium, Blood 8.6 mg/dL (8.5-10.1); Creatinine, Blood 1.13 mg/dL (0.60-1.20); Globulin, Blood 4.3 g/dL (2.2-4.0); Potassium, Blood 3.8 mmol/L (3.5-5.5); Total Protein, Blood 6.5 g/dL (6.4-8.2)
[2023-02-07 15:28] VITALS: BP 110/77
--- NOTE | 2023-02-07 18:19 | NUR ---
SHIFT SUMMARY: PT A&O TO SELF AND FAMILY. PT PLEASANT AT BEGINNING OF SHIFT BUT WAS AGRESSIVE, AGITATED, AND ANXIOUS STARTING THIS AFTERNOON. PT ARRIVED TO VISIT PT AND TALK TO FPGA DESIGN ENGINEER LUIS. PT UNABLE TO GO TO SNF DUE TO BEHAVIORS. AWAITING POTENTIAL HOME HEALTH. INCONTINENT/CONTINENT AND IRRITABLE WHEN PERFORMING PT CARE. CALL LIGHT IN REACH. BED IN LOWEST POSITION. WILL CONTINUE TO MONITOR.
[2023-02-07 22:29] VITALS: BP 120/79
[2023-02-08 04:39] VITALS: BP 121/58
--- NOTE | 2023-02-08 07:04 | NUR ---
Shift Summary Pt AOx2 with minimal communication. He did not attempt to get out of bed this shift. Incontinent, attends changed PRN. Somewhat irratable but mostly cooperative with care. VSS.
[2023-02-08 08:13] VITALS: BP 110/70
[2023-02-08 15:21] VITALS: BP 94/67
--- NOTE | 2023-02-08 17:09 | NUR ---
SHIFT SUMMARY: PT A&O TO SELF AND FAMILY. PT HAS BEEN PLEASANT AND COOPERATIVE WITH CARE THIS SHIFT. NO ACUTE CHANGES WITH PT. PT CONTINUES TO LIE IN BED WITH NO APPETITE. PT ATE 60% OF BREAKFAST BUT NOTHING FOR LUNCH. WILL ATTEMPT DINNER. PT INCONTINENT ALL SHIFT. LARGE BROWN/RED AREA ON BUTTOCK. CREAM APPLIED. PT REPOSITIONS WELL IN BED. PLAN FOR PT TO D/C WITH HOME HEALTH. CALL LIGHT IN REACH. BED IN LOWEST POSITION. WILL CONTINUE TO MONITOR.
[2023-02-08 20:13] VITALS: BP 103/81
[2023-02-09 04:53] VITALS: BP 105/79
--- NOTE | 2023-02-09 05:08 | NUR ---
SUMMARY: NO ACUTE EVENTS OVERNIGHT. VSS. PATIENT COMPLIANT WITH ALL CARE. VERY LOW MOTIVATION TO PARTICIPATE IN CARE. PATIENT DID DRINK ENTIRE DIRK DRINK BEFORE BED. AOX1. DID NOT ATTEMPT TO GET OUT OF BED OVERNIGHT, INC OF URINE. CHANGED PATIENT BREIF AND BEDDING CHANGED FREQUENTLY THROUGHOUT NIGHT.
[2023-02-09 05:23] LABS: BASOPHILS ABSOLUTE AUTO 0.03 K/mm3 (0.00-0.23); BASOPHILS PERCENT AUTO 0 % (0-2); EOSINOPHILS ABSOLUTE AUTO 0.07 K/mm3 (0.00-0.68); EOSINOPHILS PERCENT AUTO 1 % (0-6); Hemoglobin 13.2 g/dL (13.5-17.5); IMMATURE GRAN ABSOLUTE AUTO 0.06 K/mm3 (0.00-0.10); IMMATURE GRAN PERCENT AUTO 0 % (0-1); LYMPHOCYTES ABSOLUTE AUTO 1.26 K/mm3 (0.84-5.20); LYMPHOCYTES PERCENT AUTO 8 % (21-46); MONOCYTES ABSOLUTE AUTO 1.02 K/mm3 (0.16-1.47); MONOCYTES PERCENT AUTO 7 % (4-13); Mean Corpuscular HGB Conc 33.8 g/dL (31.5-36.5); Mean Corpuscular Volume 98 fL (80-100); Mean Platelet Volume 10.5 fL (9.1-12.4); NEUTROPHILS ABSOLUTE AUTO 12.72 K/mm3 (1.96-9.15); NEUTROPHILS PERCENT AUTO 84 % (41-73); Platelet Count 298 K/mm3 (150-400); RDW Coefficient Variation 12.9 % (11.7-14.2); RDW Standard Deviation 46.8 fL (35.1-46.3); White Blood Cell Count 15.16 K/mm3 (4.00-11.30)
[2023-02-09 05:46] LABS: Bun/Creatinine Ratio 35.2 (12.0-20.0); Calcium, Blood 8.7 mg/dL (8.5-10.1); Creatinine, Blood 0.94 mg/dL (0.60-1.20); Potassium, Blood 3.9 mmol/L (3.5-5.5)
[2023-02-09 07:29] VITALS: BP 124/77
[2023-02-09 17:26] VITALS: BP 131/80
--- NOTE | 2023-02-09 20:04 | NUR ---
SHIFT SUMMARY: PT ORIENTED TO SELF. PT EXTREMELY WITHDRAWN THIS SHIFT ONLY ANSWERING YES/NO QUESTIONS. PT VERY AGITATED WITH CARE BUT IS NOT COMBATIVE. ARRIVED TO SEE PT THIS SHIFT. PT STILL REFUSING TO EAT MEALS. STATED PT LIKES CHOCOLATE ENSURE WITH MILK. ATTEMPTED ENSURE BUT ONLY VANILLA. PT DID NOT LIKE AND REFUSED REST OF DRINK. MEDS WHOLE WITH WATER. PT HAS LARGE BROWN, HARD RASH ON BUTTOCKS. CREAM APPLIED. PT REPOSITIONS SELF IN BED OFF BOTTOM. CALL LIGHT IN REACH. BED IN LOWEST POSITION. REPORT GIVEN TO ONCOMING NURSE.
[2023-02-09 20:18] VITALS: BP 131/96
[2023-02-10] VITALS (13 sets, daily range): BP systolic 84–147; BP diastolic 60–83
--- NOTE | 2023-02-10 08:30 | NUR ---
pt laying in bed, wakes easily, but very limited conversation, answers yes/no but doesn't move to feed himself or take his pills, he was girmicing when raised the bed, so will give some tylenol, but he can't tell me if in pain, lungs are clear t/o, not really cooperative with care, on r/a, no cough noted, hrr, no edema noted, incont of urine, briefs in place, btx4, abd flat soft nontender,has a rash to bottom, turns self in bed, jered, call light in reach.
--- NOTE | 2023-02-10 18:27 | NUR ---
Pt has not been eating or drinking much, offered him an ensure this evening he drank the whole thing, he is running a temp, gave tylenol at 1700, at 1800 his temp was higher at 101.8, notifed Dr. Thompson, she will place orders, recheck him and is up to 102.3, he will have a cxr as well, b.c. are being drawn, he is too somulant to give him his evening meds. call light in reach. sent a stool sample to the lab for o&p, as three staff members observed a parasite in stool, the lab was unable to accept, will try again with next stool. call light in reach.
[2023-02-10 19:49] LABS: Base Excess Venous -0.9 mmol/L; Bicarbonate Venous 24.5 mmol/L (24.0-30.0); PCO2 Venous 27.6 mmHg (38-42); pH Blood Venous 7.51 (7.34-7.37)
[2023-02-10 19:49] LABS: Hematocrit 38.8 % (37.0-53.0); Hemoglobin 13.2 g/dL (13.5-17.5); Mean Corpuscular HGB 32.6 pg (26.0-34.0); Mean Corpuscular Volume 96 fL (80-100); Mean Platelet Volume 10.9 fL (9.1-12.4); Platelet Count 250 K/mm3 (150-400); RDW Coefficient Variation 13.2 % (11.7-14.2); RDW Standard Deviation 47.1 fL (35.1-46.3); Red Blood Cell Count 4.05 M/mm3 (4.30-5.90); White Blood Cell Count 10.55 K/mm3 (4.00-11.30)
[2023-02-10 20:08] LABS: Albumin, Blood 1.7 g/dL (3.4-5.0); Albumin/Globulin Ratio 0.4 (0.8-1.8); Bilirubin, Total 0.7 mg/dL (0.1-1.0); Bun/Creatinine Ratio 29.4 (12.0-20.0); Calcium, Blood 7.8 mg/dL (8.5-10.1); Creatinine, Blood 1.43 mg/dL (0.60-1.20); Globulin, Blood 4.8 g/dL (2.2-4.0); Magnesium, Blood 1.6 mg/dL (1.6-2.4); Potassium, Blood 3.8 mmol/L (3.5-5.5); Total Protein, Blood 6.5 g/dL (6.4-8.2)
[2023-02-10 20:11] LABS: BAND PERCENT MAN 18 % (0-8); BASOPHILS PERCENT MAN 0 % (0-2); EOSINOPHILS PERCENT MAN 0 % (0-6); LYMPHOCYTES ABSOLUTE MAN 0.21 K/mm3 (0.84-5.20); LYMPHOCYTES PERCENT MAN 2 % (21-46); METAMYELOCYTE ABSOLUTE MAN 0.31 K/mm3 (0.00-0.00); METAMYELOCYTE PERCENT MAN 3 % (0-0); MONOCYTES PERCENT MAN 0 % (4-13); NEUTROPHILS ABSOLUTE MAN 10.02 K/mm3 (1.96-9.15); SEG NEUTROPHILS PERCENT MAN 77 % (41-73); TOTAL CELLS COUNTED 100
[2023-02-10 21:52] LABS: Source, Urine Foley catheter
[2023-02-10 22:00] LABS: Bilirubin, Urine Neg (Neg); Blood, Urine Neg (Neg); Glucose Qualitative, Urine Neg (Neg); Ketones, Urine Neg (Neg); Leukocyte Esterase, Urine 1+ (Neg); Nitrite, Urine Neg (Neg); Protein, Urine 1+ (Neg); Urobilinogen, Urine NORM (Normal)
[2023-02-10 22:11] LABS: Appearance, Urine Clear (Clear); Color, Urine Yellow (P-Yellow)
[2023-02-10 22:12] LABS: Amorphous Light (0-Heavy); Bacteria Few /hpf; Red Blood Cells, Urine Not Seen /hpf (0-2); Squamous Epithelial Cells Not Seen /hpf (Few)
[2023-02-11] VITALS (39 sets, daily range): BP systolic 81–149; BP diastolic 45–137
--- NOTE | 2023-02-11 05:48 | NUR ---
PT AOX1. INTERMITTENTLY FOLLOWS COMMANDS. TEMP 105.2F ON TRANSFER TO ICU. ICE PACKS AND FANS PLACED. HR IMPROVED OVERNIGHT FROM 130'S TO 90'S, SR. SYS 80-90'S WITH MAPS >65. 2L NC. PATIENT HAS EXCORIATION TO BUTTOCKS. WHILE TURNING MIXTURE OF PUS AND WHAT APPEARED TO BE STOOL CONTINUOUSLY DRAINING FROM WOUND SITE FOR 5-10 MINUTES. PICTURES IN CHART.
--- NOTE | 2023-02-11 07:00 | NUR ---
ASSUMED CARE OF PATIENT. PATIENT IS SLEEPING COMFORTABLY. BP IS 90'S/60'S. PT IS RECEVING O2 @ 2LPM BUT HIS CANNULA WAS NOT PLACED PROPERLY. REAPPLIED CORRECTLY, SP02 IN HIGH 90'S. SINUS RHYTHM IN 80'S. RECEIVING LR. IV ACCESS TO RAC AND R HAND.
[2023-02-11 09:16] LABS: Source, Urine Foley catheter
[2023-02-11 09:19] LABS: Appearance, Urine Clear (Clear); Bilirubin, Urine Neg (Neg); Blood, Urine 2+ (Neg); Color, Urine Yellow (P-Yellow); Glucose Qualitative, Urine Neg (Neg); Ketones, Urine Neg (Neg); Leukocyte Esterase, Urine 1+ (Neg); Nitrite, Urine Neg (Neg); Protein, Urine 2+ (Neg); Specific Gravity, Urine 1.015 (1.003-1.022); Urobilinogen, Urine 2+ (Normal)
[2023-02-11 09:27] LABS: Bacteria Mod /hpf; Squamous Epithelial Cells Few /hpf (Few); White Blood Cells, Urine 0-2 /hpf (0-5)
[2023-02-11 09:28] LABS: Mucus Light (0-Heavy)
[2023-02-11 10:05] LABS: BASOPHILS ABSOLUTE AUTO 0.11 K/mm3 (0.00-0.23); BASOPHILS PERCENT AUTO 1 % (0-2); EOSINOPHILS ABSOLUTE AUTO 0.02 K/mm3 (0.00-0.68); EOSINOPHILS PERCENT AUTO 0 % (0-6); Hematocrit 39.8 % (37.0-53.0); Hemoglobin 12.9 g/dL (13.5-17.5); IMMATURE GRAN ABSOLUTE AUTO 0.33 K/mm3 (0.00-0.10); IMMATURE GRAN PERCENT AUTO 2 % (0-1); LYMPHOCYTES ABSOLUTE AUTO 1.02 K/mm3 (0.84-5.20); LYMPHOCYTES PERCENT AUTO 7 % (21-46); MONOCYTES ABSOLUTE AUTO 0.96 K/mm3 (0.16-1.47); MONOCYTES PERCENT AUTO 7 % (4-13); Mean Corpuscular HGB 32.1 pg (26.0-34.0); Mean Corpuscular HGB Conc 32.4 g/dL (31.5-36.5); Mean Corpuscular Volume 99 fL (80-100); NEUTROPHILS PERCENT AUTO 84 % (41-73); Platelet Count 202 K/mm3 (150-400); RDW Coefficient Variation 13.6 % (11.7-14.2); Red Blood Cell Count 4.02 M/mm3 (4.30-5.90); White Blood Cell Count 14.84 K/mm3 (4.00-11.30)
[2023-02-11 10:28] LABS: Albumin, Blood 1.5 g/dL (3.4-5.0); Albumin/Globulin Ratio 0.3 (0.8-1.8); Bilirubin, Total 0.6 mg/dL (0.1-1.0); Bun/Creatinine Ratio 29.3 (12.0-20.0); Calcium, Blood 8.2 mg/dL (8.5-10.1); Creatinine, Blood 1.64 mg/dL (0.60-1.20); Globulin, Blood 4.7 g/dL (2.2-4.0); Potassium, Blood 4.6 mmol/L (3.5-5.5); Total Protein, Blood 6.2 g/dL (6.4-8.2)
[2023-02-11 11:22] LABS: International Normalized Ratio 1.36
--- NOTE | 2023-02-11 12:09 | NUR ---
Brief fupportive visit with she was very distraught she has some disabilities. we discussed that he will need extensive care she was hoping he will return to who he was. Gently explained that we need to see diagnositics. Advised I will help her plan. She states she has a step son that helps her advised her to have him come up this weekend and see his dad. Will have our team have a family meeting.
--- NOTE | 2023-02-11 13:31 | NUR ---
"Spiritual Care Visit | Nurse Request Pt. is awake in bed and welcomes my visit. Pt. is pleasant but displays evidence limited orientation. With theraputic listening Pt. does ask questions about matters of zenia and belief. Kept this introductory visit short due to the Pt. displaying evidence of frustration in processing thoughts and words. Pt. did request that I pray for him, and I did. Pt. verbalized gratitude for the spiritual care visit."
--- NOTE | 2023-02-11 17:51 | NUR ---
SHIFT SUMMARY NEURO: PATIENT ONLY ABLE TO IDENTIFY NAME AT BEGINNING OF SHIFT. IN THE LATE AFTERNOON, PATIENT WAS ABLE TO VERBALIZE FULL NAME, DATE OF , AND THE FACT THAT HE WAS IN THE HOSPITAL BUT WAS UNSURE WHY. WHEN OFFERED TO TURN THE TV ON FOR HIM, PT REPORTED HE CAN DO SO HIMSELF, BUT STRUGGLED AT FIRST HE KEPT PUSHING HIS CALL LIGHT INSTEAD OF THE TV POWER BUTTON. PRACTICE OFFICE ASSOCIATE STRENGTH R>L. UNABLE TO MOVE LEFT LOWER EXTREMITY, WHICH IS STIFF. CARDIAC: BP'S HAVE BEEN STABLE WITH A MAP OF 65. SINUS RHYTHM IN 80-90'S. SEE VITAL SIGN FLOWSHEET. RESPIRATORY: SPO2 IN HIGH 90'S ON ROOM AIR. GI: [facility] CATH PLACED THIS AM. DRAINING WELL WITH CRISTINA COLORED URINE. [facility] CULTURE COLLECTED AND SENT. : CURRENTLY NPO. TOLERATED SIPS OF WATER WELL. SPEECH THERAPY TO EVALUATE 02/12. NG TUBE WAS PLACED AT 1700 AND VERIFIED BY CXR, HOWEVER PT REMOVED SHORTLY THEREAFTER. NOTIFIED, OKAY TO HOLD FOR NOW. REPORTS HE IS NOT HUNGRY. LINES: PICC LINE TO KENIA, PERIPHERAL IV PLACED IN RIGHT HAND. RAC IV WAS PULLED DUE TO COMPROMISED PATENCY. LR RUNNING AT 150mL/HR, HEPARIN RUNNING AT 12U/KG/HR, ZOSYN RUNNING AT 12.5mL/HR. WOUNDS: NO CHANGE TO WOUND ON R BUTTOCK DURING THIS SHIFT. CONTINUES TO DRAIN PURULENT DISCHARGE. ABSCESS CULTURE OBTAINED THIS AM, WILL AWAIT RESULTS.
--- NOTE | 2023-02-11 19:12 | NUR ---
SPOKE WITH PTS SON AND DAUGHTER IN [place] UPDATE PROVIDED TO SON PER CHIN'S REQUEST. ALL QUESTIONS ANSWERED. DISCUSSED PROGNOSIS AND SON STATES HE WILL TRAVEL FROM [place], [place] TOMORROW. ADVISED CHIN THAT SON WILL BE COMING TO VISIT AND HELP HER MAKE DECISIONS. CHIN EXPRESSES APPRECIATION FOR THE ASSISTANCE WITH COMMUNICATION. SHE LOOKS FORWARD TO THE SUPPORT. SON'S PHONE NUMBER PROVIDED TO SURGEON TO PROVIDE UPDATE.
--- NOTE | 2023-02-11 22:22 | NUR ---
ASSUMED CARE AT 1900 PATIENT IS ALERT AND ORIENTED TO SELF AND FAMILY, RIGHT LEG WITH NO MOVEMENT. PATIENT APPEARS WEAK. 02 SATS >95% ON RA. HR SR 100, BP STABLE. TEMP [facility] PATENT AND DRAINING TO GRAVITY. PATIENT TURNED AND PADS CHANGED UNDER BOTTOM. CALL LIGHT IN REACH
[2023-02-12] VITALS (20 sets, daily range): BP systolic 80–114; BP diastolic 52–90
[2023-02-12 03:50] LABS: Hematocrit 33.6 % (37.0-53.0); Hemoglobin 11.3 g/dL (13.5-17.5); Mean Corpuscular HGB 32.7 pg (26.0-34.0); Mean Corpuscular HGB Conc 33.6 g/dL (31.5-36.5); Mean Corpuscular Volume 97 fL (80-100); Mean Platelet Volume 11.7 fL (9.1-12.4); Platelet Count 185 K/mm3 (150-400); RDW Coefficient Variation 13.8 % (11.7-14.2); Red Blood Cell Count 3.46 M/mm3 (4.30-5.90); White Blood Cell Count 12.27 K/mm3 (4.00-11.30)
[2023-02-12 04:09] LABS: Albumin, Blood 1.3 g/dL (3.4-5.0); Albumin/Globulin Ratio 0.3 (0.8-1.8); Bilirubin, Total 0.7 mg/dL (0.1-1.0); Bun/Creatinine Ratio 28.1 (12.0-20.0); Calcium, Blood 7.8 mg/dL (8.5-10.1); Creatinine, Blood 1.14 mg/dL (0.60-1.20); Potassium, Blood 3.9 mmol/L (3.5-5.5); Total Protein, Blood 5.3 g/dL (6.4-8.2)
[2023-02-12 04:18] LABS: BAND PERCENT MAN 8 % (0-8); BASOPHILS PERCENT MAN 0 % (0-2); EOSINOPHILS PERCENT MAN 0 % (0-6); LYMPHOCYTES ABSOLUTE MAN 0.98 K/mm3 (0.84-5.20); LYMPHOCYTES PERCENT MAN 8 % (21-46); MONOCYTES ABSOLUTE MAN 0.36 K/mm3 (0.16-1.47); MONOCYTES PERCENT MAN 3 % (4-13); NEUTROPHILS ABSOLUTE MAN 10.92 K/mm3 (1.96-9.15); SEG NEUTROPHILS PERCENT MAN 81 % (41-73); TOTAL CELLS COUNTED 100
--- NOTE | 2023-02-12 05:57 | NUR ---
SHIFT SUMMARY PATIENT IS ALERT AND ORIENTED TO SELF ONLY. AGITATED AND DIFFICULT TO REDIRECT, MITTS IN PLACE TO KEEP PATIENT FROM PULLING LINES/TUBES. 02 SATS >95% ON RA. HR SR-ST 90s-105. BP STABLE THROUGH THE NIGHT. TEMP [facility] PATENT AND DRAINING TO GRAVITY. PATIENT REPOSITIONED Q2 HOURS. WOUNDS LEAKING AND POSSIBLE LOOSE STOOLS CLEANED PRN. UPDATED MULTIPLE TIMES. CALL LIGHT IN REACH
--- NOTE | 2023-02-12 09:30 | NUR ---
CARE OF PT ASSUMED AT 0700. PT AWAKE, CONFUSED, MOSTLY NON-VERBAL. PT MOANS, AND YELLS OUT WITH CARE. PT UNABLE TO WORK W SPEECH TO CONFUSION (APPARENTLY YELLED AT SPEECH USING PROFANITY). PT DOES NOT FOLLOW COMMANDS THIS AM. PT INCONTINENT OF LIQUID STOOL. BUTTOCKS ARE VERY SWOLLEN, HARD, EXCORIATED, WITH NECROTIC FOUL SMELLING TISSUE. PT APPEARS TO BE IN PAIN, DR HUSSEIN CALLED, MORPHINE IV ORDERED FOR PAIN. DR HUSSEIN WAS IN THIS AM TO SEE PT, UPDATE GIVEN. AWAITING PT'S ; AND SON WHOM IS COMING FROM OUT OF STATE. POSSIBLE TRANSITION TO COMFORT CARE PER DR HUSSEIN.
--- NOTE | 2023-02-12 12:24 | NUR ---
DURING REPOSITION LARGE AMT OF STOOL MIXED WITH FOUL SMELLING PURULENT MATTER NOTED TO STREAMING FROM ABSCESS SITE (PIN HOLE SIZED) AT RIGHT INNER BUTTOCK. APPROX 400CC FLUID FROM SITE CLEANED. RECTAL BAG PLACED OVER ABSCESS HOLE, THEN COVERED WITH GAUZE AND ABD PADS. PT IN SIGNIFICANT AMT OF PAIN DURING CLEANING/DRSG PLACEMENT. DR HUSSEIN CALLED AND GIVEN UPDATE; MS INCREASED TO 1-2MG Q 2HRS.
--- NOTE | 2023-02-12 12:58 | NUR ---
PT'S SON AND AT BEDSIDE, FAMILY UPDATED. DR HUSSEIN WILL BE BY SHORTLY TO SPEAK WITH THEM. PT APPEARS MORE COMFORTABLE AFTER MS. PT AWAKENS TO VOICE, APPEARS TO RECOGNIZE FAMILY.
--- NOTE | 2023-02-12 14:10 | NUR ---
DR HUSSEIN IN TO SPEAK WITH PT AND PT'S FAMILY. PT NOW COMFORT CARE STATUS, DR HUSSEIN WILL PLACE ORDERS. PASTORAL CARE AT BEDSIDE.
--- NOTE | 2023-02-12 14:48 | NUR ---
"Spiritual Care | Nurse/Family request Pt. will be made comfort care soon. Presently Pt. is not significantly responsive, but will open his eyes on occassion and nod if he understands what people are talking about. Spouse is present and is appropriately emotionally grieving. Facilitate a lengthy life review with the spouse. Listen with an engaged and calming empathetic presence. Some pastoral extension course counselor is given. Spouse displays evidence of being comforted and a greater sense of peace. Prayed with Pt. and spouse. Pts. son and DIL then arrive and display their own approriate emotional grief. Facilitate another life review, and estbalish rapport. Take spouse out in to the hallway to allow pts. son and DIL to have some time with Pt. Pts. DIL summoned Pts. spouse and I to return where more prayer is given and life story is shared. 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
--- NOTE | 2023-02-12 15:28 | NUR ---
Pt's son and are at bedside. They have elected to go comfort care. Orders changed, and code statud changed. Palliative to remain involved.
--- NOTE | 2023-02-12 16:06 | NUR ---
COMFORT ORDERS PLACED. DNR BAND IN PLACE. PT REPOSITIONED. PT AWAKE, APPEARS COMFORTABLE. PT IS CALM, MOSTLY NON-VERBAL. DRSG TO BUTTOCKS INTACT AND DRY, ABSCESS DRAINAGE AND STOOL DRAINING TO RECTAL BAG WHICH WAS PLACED OVER ABSCESS AREA (RIGHT INNER BUTTOCK AREA).
--- NOTE | 2023-02-12 17:41 | NUR ---
PT TRANSFERED TO ROOM 340, FAMILY AWARE.
--- NOTE | 2023-02-12 18:51 | NUR ---
TRANSFER PTN TRANSFER FROM ICU AT 1720. PTN COMFORT CARE. PICC LINE AND R PIV IN PLACE. MITTS ORDER PLACED AT 0831 THIS AM FOR PULLING AT LINES. ORIENTED TO SELF, SLEEPING BUT AROUSABLE, ANSWERS SOME QUESTIONS. R BUTTOCK WOUND WITH FISTULA TO RECTUM, COVERED WITH RECTAL BAG AND ABD/4X4'S, TAPE TO SECURE. CAN BE DRAINED BY URINARY CATHETER BAG. REPORT AND WOUND CARE INSTRUCTIONS PER LILIANA IN ICU, EXTRA SUPPLIES BROUGHT UP. SUGGESTS WE WEAR FACE COVERING, GOWN AND GLOVES FOR ALL WOUND CARE. SON HERE FROM [place], DISABLED NOS, BUT WERE NOT PRESENT AT THIS TIME. REPORT OF AGGRESSION AND CUSSING WHEN SWALLOW EVAL DONE, BUT NOTHING SINCE. PTN HAS BEEN COMFORTABLE SINCE ARRIVAL TO UNIT, TREATED PER EMAR. CONTINUE WITH PLAN OF CARE. REPORT GIVEN TO ELISEO MCLEOD FOR NEXT SHIFT.
--- NOTE | 2023-02-12 22:30 | NUR ---
NON VIOLENT RESTRAINTS D/C @ 193. PT ON COMFORT CARE.
--- NOTE | 2023-02-13 03:38 | NUR ---
SHIFT SUMMARY NOC PT ON COMFORT CARE. NO IV ACCESS ORDER IN PLACE AND RH IV AND KENIA PICC D/C. MITT NV RESTRAINTS ALSO D/C. PT HAS [facility] IN PLACE TO HELP PREVENT FURTHER INFECTION. PT HAS R BUTTOCKS WOUND WITH FISTULA TO RECTUM. WOUND CARE INTRUCTIONS ARE TO COVER WITH RECTAL BAD AND ABD/4X4'S. TAPE FOR SECUREMENT. CAN BE DRAINED WITH CATHETER BAG. FULL PPE INCLUDING FACE SHIELD RECOMMENDED FOR DRESSING CHANGE. CHIN CALLED FOR UPDATE ON PT CONDITION AND GAVE INSTRUCTIONS TO CALL FOR ANY ACUTE CHANGES IN PT CONDITION (# ON WHITEBOARD). PT HAS BEEN RESTING COMFORTABLY DURING ENTIRE SHIFT AND HAS NOT REQUIRED ANY PN/AGITATION RX. PT IS CURRENTLY RESTING WITH BED IN LOWEST POSITION, AND CALL LIGHT WITHIN REACH.
--- NOTE | 2023-02-13 14:25 | NUR ---
NURSE NOTE PER DR HUSSEIN REQUEST. REMOVED WOUND COVERING AND DRAIN. CLEANED AND REPLACED WOUND DRESSING AND LEFT WOUND DRAIN OUT. MINIMAL OUTPUT NOTATED. DR HUSSEIN VIEWED WOUND.
--- NOTE | 2023-02-13 16:41 | NUR ---
COMFORT CARE SUMMARY PATIENT IS NOT ALERT AND ORIENTED. PATIENT HAS BEEN RESTING MOST OF SHIFT. DR HUSSEIN WAS SHOWN WOUND. WOUND OUTPUT HAS SLOWED TO MINIMAL OUTPUT. DRAIN WAS REMOVED AND WOUND DRESSING WAS REPLACED. FAMILY UPDATED ON CARE PLANS. POSSIBLE DC TOMORROW.
--- NOTE | 2023-02-13 17:23 | NUR ---
The patient is currently on comfort care in room 340, and is currently non-responsive. His Kailey agreed to sign the POLST as DNR/DNI. Dr. Thompson currently in a pt's room in ICU and will sign finished POLST later today. Palliative care to remain involved as needed. Pt and family are both very pleasant.
--- NOTE | 2023-02-14 11:37 | NUR ---
NOTES/DISCHARGE SUMMARY: PT IS ON COMFORT CARE. ALERT ABLE TO ANSWER YES/NO QUESTIONS. RECEIVED BEDBATH AND LINEN CHANGED. ORAL CARE, DARVIN CARE, AND ATTENDS CHANGED. REPOSITIONED FOR COMFORT. MEDICATED X1 c 20 MG OF ROXANOL. NO IV ACCESS PER ORDER. PATIENT APPEARS TO BE COMFORTABLE RESTING IN BED. NO FACIAL GRIMACING, RR IS EVEN AND UNLABORED. PATIENT DISCHARGE HOME c HOSPICE CARE. DISCHARGE INSTRUCTION PACKET GIVEN TO [employer] PERSONNEL. HOSPICE CARE ALREADY ARRANGED YESTERDAY BY EMERGENCY MANAGEMENT CONSULTANT. ALL PATIENT BELONGINGS WERE SENT HOME c THE PATIENT. PATIENT LEFT THE ROOM AT AROUND 1133. PATIENT IS TRANSPORTED VIA GURNEY BY [employer] TRANSPORT TO HOME.
--- NOTE | 2023-02-14 11:46 | NUR ---
ADDITIONAL NOTES: PATIENT DISCHARGE HOME c HOSPICE CARE, [facility] IN PLACED PER ORDER FOR COMFORT.
== END 2023-02-14 11:36 | disposition hospice, home (50) | DRG 682 ==
LOC: ER 18:01 → PCU 23:14 → ICUW 23:14 → ICUE 23:14 → MEDS 23:14 → PCU 01-28 17:43 → MEDS 01-29 17:54 → ICUE 01-31 17:18 → PCU 02-01 16:02 → MEDS 02-03 18:35 → ICUW 02-10 19:45 → MEDS 02-12 17:21 → ENPENDDIS 02-14 10:13 → MEDS 02-14 11:36
PROVIDERS: Internal Medicine; Nurse Practitioner Acute Care; Student in an Organized Health Care Education/Training Program; ADMIT Internal Medicine
PROC: 3E03329 Introduction of Other Anti-infective into Peripheral Vein, Percutaneous Approach (ICD-10-PCS; principal; 2023-02-10)
PROC: 0D9670Z Drainage of Stomach with Drainage Device, Via Natural or Artificial Opening (ICD-10-PCS; 2023-02-11)
DX: N17.9 Acute kidney failure, unspecified (principal); A41.51 Sepsis due to Escherichia coli [E. coli]; G92.8 Other toxic encephalopathy; R65.20 Severe sepsis without septic shock; K68.9 Other disorders of retroperitoneum; I63.9 Cerebral infarction, unspecified; M62.82 Rhabdomyolysis; A18.01 Tuberculosis of spine; N39.0 Urinary tract infection, site not specified; R47.01 Aphasia; G81.94 Hemiplegia, unspecified affecting left nondominant side; E87.3 Alkalosis; E87.20 Acidosis, unspecified; F10.231 Alcohol dependence with withdrawal delirium; Z51.5 Encounter for palliative care; Z66 Do not resuscitate; I10 Essential (primary) hypertension; R94.5 Abnormal results of liver function studies; K70.10 Alcoholic hepatitis without ascites; L98.8 Other specified disorders of the skin and subcutaneous tissue; B95.7 Other staphylococcus as the cause of diseases classified elsewhere; L89.159 Pressure ulcer of sacral region, unspecified stage; K42.9 Umbilical hernia without obstruction or gangrene; E78.5 Hyperlipidemia, unspecified; R74.01 Elevation of levels of liver transaminase levels; E86.0 Dehydration; R73.9 Hyperglycemia, unspecified; E88.09 Other disorders of plasma-protein metabolism, not elsewhere classified; Z71.41 Alcohol abuse counseling and surveillance of alcoholic; Z79.01 Long term (current) use of anticoagulants; Z86.718 Personal history of other venous thrombosis and embolism; Z78.1 Physical restraint status
CPT/HCPCS: 36415; 51701; 51702; 70450; 70496; 70498; 70551; 71045; 71046; 74177; 76705; 80048; 80053; 80061; 80069; 80074; 81001; 82140; 82550; 82803; 82947; 83036; 83605; 83690; 83735; 84145; 84484; 85025; 85027; 85610; 85730; 87040; 87070; 87075; 87077; 87086; 87177; 87186; 87205; 87209; 92610; 93005; 93010; 93306; 93308; 93321; 94760; 96360-59; 97110; 97112; 97116; 97162; 97166; 97530; 97535; 99285-25; A9270; C1751; J0360; J1644; J1650; J1885; J1956; J2060; J2270; J2543; J3010; J3370; J3411; J7030; J7050; J7120; Q9967